=== PATIENT | male | born 1965 | race Native Hawaiian/Other Pacific Islander ===

== ENCOUNTER 2021-01-06 06:21 | Day surgery (SDC) | payer OTHER, SELFPAY ==
[2020-12-30 13:03] VITALS: BMI 26.4
--- NOTE | 2021-01-04 15:12 | HO.ANESPROP2 ---
Documented by User: Janis Correia 01/04/21 15:13 HPI - Anesthesia Eval Consult details Narrative: 55yo M for Colonoscopy [facility] Past Medical History Medical History No significant medical problems Surgical History Surgical History History of appendectomy S/P cervical spinal fusion Social History Social History Patient Tobacco Use Status: Former Tobacco user Tobacco use type: Cigarette Years Smoked: 5 Smoked in Last 30 Days: No Use of substances other than those prescribed or required for medical reasons: No Are you DNR?: No Advance Directives: No Advance Directives Information Provided: Yes Meds Allergies Allergy/AdvReac Type Severity Reaction Status Date / Time NSAIDS (Non-Steroidal Allergy Sneezing Verified 01/06/21 06:32 Anti-Inflamma Home Medications Medication Instructions Recorded Confirmed Last Taken Type Vitamin C 12/30/20 Unknown History cetirizine [Zyrtec] 10 mg PO DAILY 12/30/20 12/30/20 Unknown History multivitamin 1 tab PO DAILY 12/30/20 12/30/20 Unknown History vitamin B complex [B Complex] 1 cap PO DAILY 12/30/20 12/30/20 Unknown History Exam Exam Date and Time: January 04, 2021 1512 Height,Weight and Vital Signs: Height 5 ft 7 in Weight 76.657 kg Assessment and Plan Assessment Anesthesia Assessment: Chart Reviewed Documented by User: zIzy White 01/06/21 07:19 [facility] Past Medical History Medical History No significant medical problems Surgical History Surgical History History of appendectomy S/P cervical spinal fusion Social History Social History Patient Tobacco Use Status: Former Tobacco user Tobacco use type: Cigarette Years Smoked: 5 Smoked in Last 30 Days: No Use of substances other than those prescribed or required for medical reasons: No Are you DNR?: No Advance Directives: No Advance Directives Information Provided: Yes Meds Allergies Allergy/AdvReac Type Severity Reaction Status Date / Time NSAIDS (Non-Steroidal Allergy Sneezing Verified 01/06/21 06:32 Anti-Inflamma Home Medications Medication Instructions Recorded Confirmed Last Taken Type Vitamin C 12/30/20 Unknown History cetirizine [Zyrtec] 10 mg PO DAILY 12/30/20 12/30/20 Unknown History multivitamin 1 tab PO DAILY 12/30/20 12/30/20 Unknown History vitamin B complex [B Complex] 1 cap PO DAILY 12/30/20 12/30/20 Unknown History Exam Airway Mallampati Class: II TM Dist: >3cm Neck ROM: Full Heart: RRR Lungs: CTA Other:
[2021-01-06 06:33] VITALS: BMI 26.6
[2021-01-06 06:39] VITALS: BP 112/68; PULSE 60; RESP 16; TEMP 36.5; O2SAT 99
[2021-01-06] MEDS: Lactated Ringers 1,000 ML 100 ML IVCONT (06:53)
[2021-01-06 08:15] VITALS: BP 101/58; PULSE 69; RESP 16; TEMP 36.8; O2SAT 97
--- NOTE | 2021-01-06 08:19 | PM.OP ---
Brief Operative Note Date of Service: 01/06/21 Pre-op diagnosis: Screning Post-op diagnosis: other (Colon polyps) Procedure: Colonoscopy to the cecum and TI with biopsy and removal of polyps Surgeon: Ronan Gtz Anesthesia: MAC Was an [employer] used for this Procedure?: No Estimated blood loss (mL): 3.0 Pathology: other (A. Cecal polyp B. Ascending colon polyp) Condition: stable Disposition: PACU
[2021-01-06 08:31] VITALS: BP 97/63; PULSE 72; RESP 16; TEMP 36.8; O2SAT 97
--- NOTE | 2021-01-06 08:36 | OP_ITS ---
SURGEON: Ronan Gtz MD INDICATIONS: The patient presents for evaluation of colorectal cancer screening. Full consent has been obtained from him for this, including risks of bleeding and perforation. PREOPERATIVE DIAGNOSIS: Colorectal cancer screening. POSTOPERATIVE DIAGNOSIS: PROCEDURE PERFORMED: Colonoscopy to cecum and terminal ileum with biopsy and removal of polyps. ESTIMATED BLOOD LOSS: COMPLICATIONS: ANESTHESIA: Monitored anesthesia care. ASSISTANTS: SPECIMENS: POSTOPERATIVE DIAGNOSES: Colorectal cancer screening, small colon polyps, mild diverticulosis, and internal hemorrhoids. DESCRIPTION OF PROCEDURE: The patient was placed in the left lateral decubitus position. The digital rectal exam revealed no abnormalities. The Olympus video pediatric colonoscope was entered into the rectum and advanced easily to the cecum. Once in the cecum, I did identify normal-appearing cecal pouch other than a less than 5 mm polyp, which was biopsied and completely removed with cold biopsy forceps. The appendiceal orifice appeared normal. The terminal ileum was cannulated and appeared normal. The scope was withdrawn back in the colon. The entire ileocecal valve appeared normal. The scope was slowly withdrawn assessing all mucosal surfaces carefully. Preparation was excellent. In the ascending colon, was a flat less than 5 mm polyp, which was biopsied and completely removed with cold biopsy forceps. I did not visualize any other polyps, colitis, nor angiodysplasia. There was a mild amount of sigmoid diverticulosis. In the rectum, scope was retroflexed visualizing internal hemorrhoids, but no other pathology. The rectal mucosa appeared normal. The scope was straightened out and withdrawn from the patient. He tolerated the procedure well and was returned to the recovery area in stable condition. IMPRESSION: 1. Small colon polyps, status post biopsy and removal. 2. Mild diverticulosis. 3. Internal hemorrhoids. PLAN: The results of the biopsies will be checked. If these are tubular adenoma, I would recommend a followup colonoscopy in 5 years. If they are only hyperplastic, I would recommend a followup colonoscopy in 10 years. He will otherwise see me on a p.r.n. basis. MD KATI Haider/JULIUS / [phone]
--- NOTE | 2021-01-06 11:14 | HO.POSTANES ---
Post Anesthesia Evaluation Post Anesthesia Evaluation Vital Signs: Vital Signs Temp Pulse Resp BP Pulse Ox 01/06/21 08:31 98.3 F 72 16 97/63 97 01/06/21 08:15 98.3 F 69 16 101/58 L 97 01/06/21 06:39 97.7 F 60 16 112/68 99 Anesthesia: Monitored Mental Status: Awake Pain Control: Satisfactory Nausea/Vomiting: None Hydration: Adequate Anesthesia-Related Issues: No Anes. Related Issues
== END 2021-01-06 08:54 | disposition home or self-care (01) ==
PROVIDERS: PCP Internal Medicine; Visit Provider Internal Medicine
PROC: 0DJD8ZZ Inspection of Lower Intestinal Tract, Via Natural or Artificial Opening Endoscopic (ICD-10-PCS; CPT 45378; principal; 2021-01-06 07:30)
DX: Z12.11 Encounter for screening for malignant neoplasm of colon (principal); D12.0 Benign neoplasm of cecum; D12.2 Benign neoplasm of ascending colon; K57.30 Diverticulosis of large intestine without perforation or abscess without bleeding; K64.8 Other hemorrhoids; Z79.899 Other long term (current) drug therapy; Z88.8 Allergy status to other drugs, medicaments and biological substances; Z87.891 Personal history of nicotine dependence
CPT/HCPCS: 45380; 88305